=== PATIENT | male | born 2000 | race Caucasian/White ===

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

== ENCOUNTER 2024-08-21 00:20 | Emergency (ER) | payer OTHER | END 2024-08-21 01:28 | disposition home or self-care (01) | LOC: VM.ED 00:20 | DX: S62.634A Displaced fracture of distal phalanx of right ring finger, initial encounter for closed fracture (principal); W23.1XXA Caught, crushed, jammed, or pinched between stationary objects, initial encounter; Y99.0 Civilian activity done for income or pay | CPT/HCPCS: 99283 ==